=== PATIENT | male | born 1975 ===

== ENCOUNTER 2017-12-18 15:12 | Emergency (ER) | payer OTHER, SELFPAY ==
[2017-12-18 15:35] VITALS: BP 116/67; PULSE 105; RESP 22; TEMP 99.9; O2SAT 97
--- NOTE | 2017-12-18 15:50 | ED PDOC ---
HPI: CCC, URI, Sore Throat Time Seen by Provider: 12/18/17 15:38 Chief Complaint (Nursing): Flu-like Symptoms Chief Complaint (Provider): Flu-like Symptoms History Per: Patient History/Exam Limitations: no limitations Onset/Duration Of Symptoms: Days (x2) Current Symptoms Are (Timing): Still Present Additional Complaint(s): Patient is a 42 y/o male who presents complaining of body aches, cough, and congestion since yesterday. Positive sick contact in the patients son. No vomiting or diarrhea. Took Tylenol, last dose was at 6AM this morning. PMD: non-[facility] Provider Past Medical History Reviewed: Historical Data, Nursing Documentation, Vital Signs Vital Signs: Last Vital Signs Temp 99.9 F H 12/18/17 15:33 Pulse 105 H 12/18/17 15:33 Resp 22 12/18/17 15:33 BP 116/67 12/18/17 15:33 Pulse Ox 97 12/18/17 15:50 - Family History Family History: States: Unknown Family Hx - Immunization History Hx Tetanus Toxoid Vaccination: (patient not sure) - Home Medications Home Medications: Ambulatory Orders Medication Instructions Recorded Cephalexin [Keflex] 500 mg PO TID #21 capsule 05/18/16 oxyCODONE/Acetaminophen [Percocet 1 tab PO Q6 PRN #30 tab 05/18/16 5/325 mg Tab] Acetaminophen [Tylenol] 650 mg PO Q4 PRN #15 tablet 06/07/16 Acetaminophen with Codeine 1 each PO Q4 PRN #12 tablet 06/07/16 [Acetaminophen-Cod #3 Tablet] DiphenhydrAMINE [Benadryl] 25 mg PO Q4H #0 cap 06/07/16 Prednisone 50 mg PO DAILY #4 tab 06/07/16 Acetaminophen [Acetaminophen Extra 2 tab PO Q4 #24 tablet 12/18/17 Strength] Ibuprofen [Motrin Tab] 800 mg PO Q8 PRN #21 tab 12/18/17 Oseltamivir Phosphate [Tamiflu] 75 mg PO BID #9 capsule 12/18/17 Pseudoephedrine [Sudafed Tab] 60 mg PO Q6 PRN #24 tab 12/18/17 - Allergies Allergies/Adverse Reactions: Allergies Allergy/AdvReac Type Severity Reaction Status Date / Time No Known Allergies Allergy Verified 06/07/16 10:11 Review of Systems ROS Statement: Except As Marked, All Systems Reviewed And Found Negative Constitutional: Positive for: Other (Body aches) ENT: Positive for: Nose Congestion Respiratory: Positive for: Cough Gastrointestinal: Negative for: Vomiting, Diarrhea Physical Exam - Reviewed Nursing Documentation Reviewed: Yes Vital Signs Reviewed: Yes - Physical Exam Appears: Positive for: Non-toxic, No Acute Distress Head Exam: Positive for: ATRAUMATIC, NORMAL INSPECTION, NORMOCEPHALIC Skin: Positive for: Normal Color, Warm, Dry Eye Exam: Positive for: EOMI, Normal appearance, PERRL ENT: Positive for: Nasal Congestion. Negative for: Pharyngeal Erythema, Tonsillar Exudate Neck: Positive for: Normal, Painless ROM Cardiovascular/Chest: Positive for: Regular Rate, Rhythm. Negative for: Murmur Respiratory: Positive for: Normal Breath Sounds. Negative for: Accessory Muscle Use, Rhonchi, Wheezing, Respiratory Distress Gastrointestinal/Abdominal: Positive for: Normal Exam, Soft. Negative for: Tenderness Neurologic/Psych: Positive for: Alert, Oriented - ECG O2 Sat by Pulse Oximetry: 97 (RA) Pulse Ox Interpretation: Normal Medical Decision Making Medical Decision Making: Initial Impression: Flu-like illness Time: 15:48 Initial Plan: --Motrin 800 mg PO --Tylenol 975 mg PO --Tamiflu 75 mg PO Scribe Attestation: Documented by Lulu Miranda, acting as a scribe for Nora Peraza PA-C Provider Scribe Attestation: All medical record entries made by the Scribe were at my direction and personally dictated by me. I have reviewed the chart and agree that the record accurately reflects my personal performance of the history, physical exam, medical decision making, and the department course for this patient. I have also personally directed, reviewed, and agree with the discharge instructions and disposition. Disposition - Clinical Impression Clinical Impression: Influenza - Patient ED Disposition Is Patient to be Admitted: No - Disposition Referrals: [facility] [Outside] Disposition: Routine/Home Disposition Time: 16:27 Condition: STABLE Prescriptions: Acetaminophen [Acetaminophen Extra Strength] 2 tab PO Q4 #24 tablet Ibuprofen [Motrin Tab] 800 mg PO Q8 PRN #21 tab PRN Reason: Pain, Moderate (4-7) Oseltamivir Phosphate [Tamiflu] 75 mg PO BID #9 capsule Pseudoephedrine [Sudafed Tab] 60 mg PO Q6 PRN #24 tab PRN Reason: Nasal Congestion Instructions: Flu, Adult (DC), Flu Forms: [facility] ED School/Work Excuse, [facility] (Japanese) Print Language: CHINESE
== END 2017-12-18 16:44 | disposition home or self-care (01) ==
LOC: H.ER 15:12
DX: J11.1 Influenza due to unidentified influenza virus with other respiratory manifestations (principal)